=== PATIENT | male | born 1965 ===

== ENCOUNTER → 2017-03-22 | Outpatient (CLI) | payer OTHER ==
[~2017-03-22] VITALS: Ht 162.6 cm; Wt 68.5 kg
[2017-03-22 14:10] VITALS: BP 120/85
== END | disposition home or self-care (01) ==
LOC: SRCNTR 13:52
PROVIDERS: ATTEND Internal Medicine Critical Care Medicine
DX: B38.2 Pulmonary coccidioidomycosis, unspecified (principal); J09.X1 Influenza due to identified novel influenza A virus with pneumonia; E11.9 Type 2 diabetes mellitus without complications
CPT/HCPCS: G0463

== ENCOUNTER → 2017-05-27 | Outpatient (CLI) | payer OTHER ==
[~2017-05-27] VITALS: Ht 162.6 cm; Wt 71.5 kg
[2017-05-27 11:45] VITALS: BP 116/85
== END | disposition home or self-care (01) ==
LOC: SRCNTR 11:41
PROVIDERS: ATTEND Internal Medicine Critical Care Medicine
DX: B38.2 Pulmonary coccidioidomycosis, unspecified (principal); E11.9 Type 2 diabetes mellitus without complications; M25.511 Pain in right shoulder; M25.512 Pain in left shoulder
CPT/HCPCS: G0463

== ENCOUNTER → 2017-09-30 | Outpatient (CLI) | payer OTHER ==
[~2017-09-30] VITALS: Ht 162.6 cm; Wt 73.0 kg
[~2017-09-30] MED LIST: FLUC200T PO
[2017-09-30 11:30] VITALS: BP 126/75
== END | disposition home or self-care (01) ==
LOC: SRCNTR 11:22
PROVIDERS: ATTEND Internal Medicine Critical Care Medicine
DX: B38.2 Pulmonary coccidioidomycosis, unspecified (principal); E11.9 Type 2 diabetes mellitus without complications
CPT/HCPCS: G0463